=== PATIENT | female | born 2000 | race American Indian/Alaskan Native ===

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

== ENCOUNTER 2019-06-30 05:17 | Emergency (ER) | payer SELFPAY ==
[2019-06-30 05:40] VITALS: BP 125/69
== END 2019-06-30 08:44 | disposition left against medical advice (07) ==
LOC: ED 05:17
DX: R07.89 Other chest pain (principal); Z53.21 Procedure and treatment not carried out due to patient leaving prior to being seen by health care provider

== ENCOUNTER 2019-09-28 13:18 | Outpatient (CLI) | payer MEDICAID ==
[2019-09-28] MEDS ORDERED: LACTATED RINGERS 500 ML IV ONE (16:00)
== END 2019-09-28 15:54 | disposition home or self-care (01) ==
LOC: LAB 13:18 → APU 13:19 → LAB 15:54
PROVIDERS: ATTEND Obstetrics & Gynecology
DX: O26.892 Other specified pregnancy related conditions, second trimester (principal); Z3A.17 17 weeks gestation of pregnancy; Z67.21 Type B blood, Rh negative
CPT/HCPCS: 86850; 86900; 86901; 96372; J2790

== ENCOUNTER 2019-11-30 05:29 | Outpatient (CLI) | payer OTHER ==
[2019-11-30] MEDS ORDERED: LACTATED RINGERS 1,000 ML IV ONE (06:03)
[2019-11-30] MEDS ORDERED: hydrOXYzine HCL 100 MG/2 ML INJ IM ONE (06:27)
[2019-11-30] MEDS ORDERED: MORPHINE 4 MG/1 ML INJ IM ONE (06:27)
[2019-11-30] MEDS ORDERED: NIFEdipine*For Tocolysis only* 10 MG CAPSULE PO ONE (07:00)
[2019-11-30 07:16] LABS: Bacteria,Urine 1+ /HPF (Negative); Bilirubin,Urine NEG (Negative); Blood,Urine NEG (Negative); Calcium Oxalate Crystals,Urine 3+; Color,Urine Yellow (Yellow); Mucus,Urine FEW /HPF
[2019-11-30 07:31] VITALS: BP 101/53
--- NOTE | 2019-11-30 07:56 | Ultrasound Report ---
OB ULTRASOUND >= 14 WEEKS FETUS INDICATION: assessment, rule out abrpution COMPARISON: 10/01/2019 FINDINGS: A single gestation intrauterine is present with cephalic presentation. The placenta is ante rior, grade 0 and free of the cervical os. heart tones measure 147 bpm. The cervix measures 3. 7 cm in length. Amniotic fluid volume is normal with a fluid index of 14.5. The intracranial structures, diaphragm, umbilical cord, cord insertion, stomach, and bladder sh ow no sonographic abnormality. There is poor visualization of the kidneys, 4 chambers of the heart an d spine due to position. Biparietal diameter is 6.5 cm which equals 26 weeks 2 days. Head circumference is 24 cm which equals 26 weeks 0 days. Abdominal circumference is 22 cm which equals 26 weeks 6 days. Femur length is 4.8 cm which equals 26 weeks 1 day. Overall estimated sonographic age is 26 weeks 2 days. EDC: 03/05/2020. HC/AC ratio: 1.1 Cephalic index: 74 Estimated weight 908 g. IMPRESSION: Viable single intrauterine as described. The placenta is unremarkable. No evidence for abruption. Signer Name: Júnior Holland Jr, MD Signed: 11/30/2019 7:52 AM Workstation Name: [id number]
== END 2019-11-30 09:00 | disposition home or self-care (01) ==
LOC: TRG 05:29 → APU 05:30 → TRG 09:00
PROVIDERS: ATTEND Obstetrics & Gynecology
DX: O26.892 Other specified pregnancy related conditions, second trimester (principal); R10.9 Unspecified abdominal pain; O21.9 Vomiting of pregnancy, unspecified; Z3A.25 25 weeks gestation of pregnancy
CPT/HCPCS: 59025; 76805; 81001; 96365; 96372; J0690; J2270; J3410; J7120; 96360; 96361

== ENCOUNTER 2019-12-01 00:32 | Outpatient (CLI) | payer OTHER ==
[2019-12-01 01:21] VITALS: BP 122/62
[2019-12-01] MEDS ORDERED: LACTATED RINGERS 1,000 ML IV ONE (01:42)
[2019-12-01] MEDS ORDERED: ACETAMINOPHEN 500 MG TAB PO ONE (02:04)
--- NOTE | 2019-12-01 02:44 | Ultrasound Report ---
US OB limited INDICATION / CLINICAL INFORMATION: KARINE, Cervical Range, Labor. TECHNIQUE: Multiplanar, multisequence MR images were obtained. COMPARISON: None available. FINDINGS: Single, viable intrauterine in breech presentation. heart rate 147. Amniotic fluid volume is within normal limits, with a fluid index of 11 cm. Cervical length measures 2.9 cm, which is lower limits of normal. IMPRESSION: 1. KARINE 11 cm. 2. Cervical length 2.9 cm. Signer Name: David Godwin MD Signed: 12/01/2019 2:40 AM Workstation Name: [id number]
== END 2019-12-01 03:20 | disposition home or self-care (01) ==
LOC: TRG 00:32 → APU 00:33 → TRG 03:20
PROVIDERS: ATTEND Obstetrics & Gynecology
DX: O47.02 False labor before 37 completed weeks of gestation, second trimester (principal); Z3A.25 25 weeks gestation of pregnancy
CPT/HCPCS: 59025; 76815